=== PATIENT | female | born 1985 ===

== ENCOUNTER 2018-12-14 18:50 | Emergency (ER) | payer SELFPAY ==
[~2018-12-14] VITALS: Ht 165.1 cm; Wt 96.1 kg
[2018-12-14 19:17] VITALS: Ht 165.1 cm; Wt 96.1 kg
[2018-12-14 20:23] VITALS: BP 136/74; PULSE 88; RESP 20
== END 2018-12-14 20:46 | disposition left against medical advice (07) ==
LOC: E/R 18:50
DX: Z53.21 Procedure and treatment not carried out due to patient leaving prior to being seen by health care provider (principal)